=== PATIENT | male | born 1955 | race Caucasian/White ===

== ENCOUNTER 2022-08-11 12:37 | Emergency (ER) | payer MEDICARE, MEDICAID ==
[2022-08-11 12:50] VITALS: BP 154/85; PULSE 85
[2022-08-11] MEDS ORDERED: Ketorolac 30 MG/ML SDV IM ONE (13:10)
== END 2022-08-11 14:49 | disposition home or self-care (01) ==
LOC: JP.ED 12:37
DX: S40.012A Contusion of left shoulder, initial encounter (principal); M54.50 Low back pain, unspecified; J44.9 Chronic obstructive pulmonary disease, unspecified; F17.210 Nicotine dependence, cigarettes, uncomplicated; Z86.73 Personal history of transient ischemic attack (TIA), and cerebral infarction without residual deficits; Z79.899 Other long term (current) drug therapy; W19.XXXA Unspecified fall, initial encounter; Y92.009 Unspecified place in unspecified non-institutional (private) residence as the place of occurrence of the external cause
CPT/HCPCS: 72100; 73030; 96372; 99283; J1885

== ENCOUNTER 2022-11-23 00:14 | Emergency (ER) | payer MEDICARE, MEDICAID ==
[2022-11-23 01:15] VITALS: BP 165/77; PULSE 70
[2022-11-23 01:24] LABS: ESTIMATED GFR 92 mL/min (>60); TROPONIN I HIGH SENSITIVITY 9.3 pg/mL (<=60.3)
== END 2022-11-23 01:53 | disposition home or self-care (01) ==
LOC: JP.ED 00:14
DX: R07.89 Other chest pain (principal); I10 Essential (primary) hypertension; F41.9 Anxiety disorder, unspecified; Z72.0 Tobacco use
CPT/HCPCS: 36415; 71045; 71045-26; 80053; 84484; 85025; 93005; 93010; 99283; 99285

== ENCOUNTER 2023-02-17 15:30 | Emergency (ER) | payer MEDICARE, MEDICAID ==
[2023-02-17 15:55] VITALS: BP 144/63; PULSE 63
[2023-02-17] MEDS: Cephalexin 250 MG Cap PO ONE (16:28)
== END 2023-02-17 17:05 | disposition home or self-care (01) ==
LOC: JP.ED 15:30
DX: S40.012A Contusion of left shoulder, initial encounter (principal); L03.114 Cellulitis of left upper limb; M25.512 Pain in left shoulder; F42.4 Excoriation (skin-picking) disorder; I25.2 Old myocardial infarction; K21.9 Gastro-esophageal reflux disease without esophagitis; J45.909 Unspecified asthma, uncomplicated; Z86.16 Personal history of COVID-19; Z72.0 Tobacco use; Z79.82 Long term (current) use of aspirin; Z79.899 Other long term (current) drug therapy; W18.30XA Fall on same level, unspecified, initial encounter
CPT/HCPCS: 73030; 73090; 99283; A9270

== ENCOUNTER 2024-10-20 09:19 | Emergency (ER) | payer MEDICAID, MEDICARE ==
[2024-10-20 09:57] LABS: APPEARANCE,URINE CLEAR (CLEAR); BILIRUBIN,URINE NEGATIVE (NEGATIVE); COLOR,URINE YELLOW (YELLOW); GLUCOSE,URINE NEGATIVE (NEGATIVE); KETONES,URINE NEGATIVE (NEGATIVE); LEUKOCYTE ESTERASE,URINE NEGATIVE (NEGATIVE); NITRITE,URINE NEGATIVE (NEGATIVE); OCCULT BLOOD,URINE SMALL (NEGATIVE); PROTEIN,URINE 100 mg/dL (NEGATIVE)
[2024-10-20 09:58] LABS: BASOPHILS ABSOLUTE AUTO 0.03 K/uL (0.00-0.10); BASOPHILS PERCENT AUTO 0.3 % (0.1-1.3); EOSINOPHILS PERCENT AUTO 0.1 % (0.0-5.4); HEMATOCRIT 38.3 % (38.4-49.7); IMMATURE GRAN ABSOLUTE AUTO 0.06 K/uL (0.00-0.23); IMMATURE GRAN PERCENT AUTO 0.5 % (0.0-0.7); LYMPHOCYTES ABSOLUTE AUTO 0.64 K/uL (0.8-3.3); LYMPHOCYTES PERCENT AUTO 5.4 % (11.4-47.7); MEAN CORPUSCULAR HEMOGLOBIN 30.9 pg (31.6-35.5); MEAN CORPUSCULAR HGB CONC 33.9 g/dL (31.6-35.5); MONOCYTES ABSOLUTE AUTO 1.02 K/uL (0.20-0.90); MONOCYTES PERCENT AUTO 8.6 % (3.3-12.6); NEUTROPHILS ABSOLUTE AUTO 10.16 K/uL (1.0-7.6); NEUTROPHILS PERCENT AUTO 85.1 % (40.0-78.1); PLATELET COUNT,PLT 185 K/uL (130-375); RED BLOOD CELL COUNT 4.21 M/uL (4.14-5.76); WHITE BLOOD CELL COUNT,WBC 11.9 K/uL (3.2-11.0)
[2024-10-20 09:59] LABS: EOSINOPHILS ABSOLUTE AUTO 0.01 K/uL (0.00-0.40)
[2024-10-20] MEDS: Sodium Chloride 0.9% 500 ML IV ONE (10:01)
[2024-10-20 10:12] LABS: AMORPHOUS SEDIMENT,URINE NOT SEEN; BACTERIA,URINE RARE; EPITHELIAL CELLS,URINE RARE; MUCUS,URINE NOT SEEN; RBC,URINE 0-5 (0-5); WBC,URINE 0-5 (0-5)
[2024-10-20] MEDS: Acetaminophen 1,000 MG in Premix Bag 1 BAG IV ONE (10:21)
[2024-10-20] MEDS: HYDROmorphone 0.5 MG/0.5 ML Syringe IVPUSH ONE (10:23)
[2024-10-20 10:29] LABS: ALANINE AMINOTRANSFERASE,ALT 36 U/L (12-78); ALBUMIN 3.4 g/dL (3.4-5.0); ALKALINE PHOSPHATASE 108 U/L (46-116); ASPARTATE AMNIOTRANSFERASE,AST 40 U/L (15-37); BILIRUBIN TOTAL 0.5 mg/dL (0.2-1.0); BLOOD UREA NITROGEN,BUN 22 mg/dL (7-18); CARBON DIOXIDE,CO2 25 mmol/L (21-32); CHLORIDE,CL 102 mmol/L (100-108); CREATININE 1.1 mg/dL (0.8-1.3); EST CRCL DRUG DOSING (CG) 61.59 mL/min; ESTIMATED GFR 72 mL/min (>60); GLUCOSE RANDOM 107 mg/dL (74-106); POTASSIUM,K 3.9 mmol/L (3.6-5.2); PROTEIN TOTAL,TP 6.9 g/dL (6.4-8.2); SODIUM,NA 135 mmol/L (140-148)
[2024-10-20 10:31] LABS: ANION GAP 11.9 mmol/L (5.0-14.0)
[2024-10-20] MEDS ORDERED: Sodium Chloride 0.9% 1,000 ML IV ONE (11:06)
[2024-10-20] MEDS ORDERED: Iopamidol 755 Mg/ML 100 ML Bottle IV SCH ×3 (11:15→12:45)
[2024-10-20] MEDS ORDERED: Sodium Chloride 0.9% 100 ML IV SCH (11:30)
[2024-10-20] MEDS: HYDROmorphone 1 MG/ML Syringe IVPUSH ONE (12:33)
[2024-10-20] MEDS: Acetaminophen/HYDROcodone 325-10 MG Tab PO ONE (12:33)
[2024-10-20 12:40] VITALS: BP 111/61; PULSE 91
[2024-10-20] MEDS: Sodium Chloride 0.9% 100 ML IV SCH (13:08)
== END 2024-10-20 16:19 | disposition home or self-care (01) ==
LOC: JP.ED 09:19
DX: J18.9 Pneumonia, unspecified organism (principal); M54.41 Lumbago with sciatica, right side; M54.42 Lumbago with sciatica, left side; G89.29 Other chronic pain; R31.9 Hematuria, unspecified; K21.9 Gastro-esophageal reflux disease without esophagitis; I25.2 Old myocardial infarction; F17.210 Nicotine dependence, cigarettes, uncomplicated; Z86.16 Personal history of COVID-19; Z86.73 Personal history of transient ischemic attack (TIA), and cerebral infarction without residual deficits; Z79.899 Other long term (current) drug therapy; Z79.82 Long term (current) use of aspirin; Z88.0 Allergy status to penicillin; Z88.8 Allergy status to other drugs, medicaments and biological substances
CPT/HCPCS: 36415; 71045; 71275; 74177; 80053; 81001; 83605; 85025; 87040; 87077; 87428; 96374; 96375; 96376; 99285; A9270; J0131; J1171; J3360

== ENCOUNTER 2024-10-22 03:03 | Emergency (ER) | payer MEDICARE ==
[2024-10-22 03:13] VITALS: BP 99/52; PULSE 81
[2024-10-22] MEDS: Ketorolac 30 MG/ML SDV IM ONE (05:59)
== END 2024-10-22 11:03 | disposition home or self-care (01) ==
LOC: JP.ED 03:03
DX: N20.0 Calculus of kidney (principal); J44.0 Chronic obstructive pulmonary disease with (acute) lower respiratory infection; J18.9 Pneumonia, unspecified organism; I25.2 Old myocardial infarction; K21.9 Gastro-esophageal reflux disease without esophagitis; F17.210 Nicotine dependence, cigarettes, uncomplicated; Z88.0 Allergy status to penicillin; Z88.8 Allergy status to other drugs, medicaments and biological substances; Z79.899 Other long term (current) drug therapy; Z86.16 Personal history of COVID-19; Z79.82 Long term (current) use of aspirin
CPT/HCPCS: 96372; 99285; J1885